=== PATIENT | female | born 1990 | race African-American/Black ===

== ENCOUNTER 2020-08-22 09:54 | Emergency (ER) | payer MEDICAID ==
[~2020-08-22] VITALS: Ht 160 cm; Wt 72.0 kg
[2020-08-22] MEDS ORDERED: ACETAMINOPHEN 325MG TABLET PO ONE (10:15)
[2020-08-22 11:05] LABS: BASOPHILS % 0.8 % (0.0-2.0); CHLORIDE 107 mEq/L (98-107); EOSINOPHILS % 1.3 % (0.0-5.0); HEMATOCRIT. 35.8 % (36.0-48.0); HEMOGLOBIN. 12.3 g/dL (12.0-16.0); LYMPHOCYTES % 26.6 % (20.0-50.0); MEAN CORPUSCULAR HEMOGLOBIN 27.2 pg (28.0-32.0); MEAN CORPUSCULAR VOLUME 79.4 fL (81.0-99.0); MEAN PLATELET VOLUME 9.9 fl (7.4-10.4); MONOCYTES % 8.7 % (2.0-8.0); NEUTROPHILS % 62.6 % (40.0-76.0); PLATELET 220 x1000/uL (130-400); RED BLOOD CELL COUNT 4.51 mill/uL (4.2-5.4); RED CELL DISTRIBUTION WIDTH 15.1 % (11.6-14.6)
[2020-08-22 11:07] LABS: HCG SCREEN NEGATIVE
[2020-08-22 11:17] LABS: CLARITY URINE TURBID (CLEAR); COLOR URINE RED (YELLOW); KETONES URINE 1+ (NEGATIVE); LEUKOCYTE ESTERASE URINE 2+ (NEGATIVE); NITRITE URINE POSITIVE (NEGATIVE); OCCULT BLOOD URINE 3+ (NEGATIVE); PROTEIN URINE 2+ (NEGATIVE); SPECIFIC GRAVITY URINE 1.031 (1.005-1.030)
[2020-08-22 11:18] LABS: B-HCG QUANTITATIVE < 1 mIU/mL (<3)
[2020-08-22] MEDS ORDERED: IBUP-2030 PO (12:10)
[2020-08-22 12:57] VITALS: BP 123/88
[2020-08-22] MEDS ORDERED: NITR100C PO ×2 (12:59→13:00)
== END 2020-08-22 12:59 | disposition home or self-care (01) ==
LOC: ER 09:54
DX: N93.9 Abnormal uterine and vaginal bleeding, unspecified (principal)
CPT/HCPCS: 36415; 76830; 76856; 80053; 81003; 81025; 84702; 84703; 85025; 86850; 86900; 87077; 99284